=== PATIENT | male | born 1990 | race African-American/Black ===

== ENCOUNTER 2021-11-28 09:43 | Day surgery (SDC) | payer OTHER ==
[2021-11-28] VITALS (7 sets, daily range): BP systolic 127–147; BP diastolic 81–87; PULSE 77–89; TEMP 97.4–98.3
[~2021-11-28] VITALS: Ht 190.5 cm; Wt 83.9 kg
[2021-11-28] MEDS ORDERED: ADDERALL XR 10M10 MG PO (11:09)
[2021-11-28] MEDS ORDERED: EFFEXOR 75M75 MG/TAB PO (11:10)
[2021-11-28] MEDS ORDERED: ADDERALL10 MG PO (11:10)
--- NOTE | 2021-11-28 12:40 | NUR ---
Pt doing well, up to the bathroom and warm blanket applied. Call light in reach.
[2021-11-28] MEDS ORDERED: NORCO 325 MG-51 TAB PO (14:59)
--- NOTE | 2021-11-28 15:55 | NUR ---
Pt to [facility] from PACU, drowsy but oriented x3, reports mild discomfort to abdomen, had pain medication in PACU. Dynamap applied. Abdominal binder in place. Pt given ice chips. Call light in reach.
--- NOTE | 2021-11-28 16:10 | NUR ---
Pt given water and crackers, reports waves of pain but able to be on cellphone and talk to friends on the phone. Will give pain pill after he eats some crackers. Call light in reach.
--- NOTE | 2021-11-28 16:45 | NUR ---
Pt denies nausea. [employer] given per orders. Call light in reach.
--- NOTE | 2021-11-28 17:05 | NUR ---
Report given to LAURA Young.
--- NOTE | 2021-11-28 17:40 | NUR ---
VSS ON ROOM AIR. PATIENT RESTING IN BED. PATIENT STATES DISCOMFORT DOES CONTINUE. PATIENT DECLINED TO TRY TO VOID AT THIS TIME. 1749 PATIENT UP TO RESTROOM. MOVES VERY SLOWLY BUT IS STEADY ON FEE. VOIDS WITHOUT PROBLEMS. 1753 IV DC'D WITH CATHETER TIP INTACT. PRESSURE AND BANDAGE APPLIED. 1755 DISCHARGE INSTRUCTIONS GIVEN VERBAL AND DISCHARGE PACKET PROVIDED. QUESTIONS ANSWERED AND PATIENT VOICED UNDERSTANDING. PATIENT CHANGES INTO STREET CLOTHES. WAITING FOR RIDE.
--- NOTE | 2021-11-28 18:10 | NUR ---
Pt taken out via wheelchair and left in care of friend.
== END 2021-11-28 18:10 | disposition home or self-care (01) ==
LOC: SDCO 09:43
DX: K43.2 Incisional hernia without obstruction or gangrene (principal); K66.0 Peritoneal adhesions (postprocedural) (postinfection); F32.A Depression, unspecified; F41.9 Anxiety disorder, unspecified; Z79.899 Other long term (current) drug therapy
CPT/HCPCS: C1781; J0690; J1100; J1885; J2250; J2405; J2704; J3010; J7120